=== PATIENT | male | born 1965 | race Hispanic/Latino ===

== ENCOUNTER 2019-05-10 17:00 | Emergency (ER) | payer SELFPAY ==
--- NOTE | 2019-05-10 18:06 | RAD REPORT ---
EXAM DESCRIPTION: CT - Head Brain Wo Cont - 05/10/2019 5:56 pm CLINICAL HISTORY: DIZZINESS Headache, drowsiness, hypertension COMPARISON: No comparisons TECHNIQUE: All CT scans are performed using dose optimization technique as appropriate and may inclu de automated exposure control or mA/KV adjustment according to patient size. FINDINGS: No intracranial hemorrhage, hydrocephalus or extra-axial fluid collection.Mild generalized brain atrophy is present with mild periventricular and deep white matter chronic microvascular ische negra changes.No areas of brain edema or evidence of midline shift. The paranasal sinuses and mastoids are clear. The calvarium is intact. IMPRESSION: No acute intracranial abnormality.
--- NOTE | 2019-05-10 18:14 | RAD REPORT ---
EXAM DESCRIPTION: RAD - Chest Single View - 05/10/2019 6:02 pm CLINICAL HISTORY: CHEST PAIN Chest pain. COMPARISON: No comparisons FINDINGS: Portable technique limits examination quality. Interstitial markings are mildly prominent. The heart is normal in size. No displaced fractures.
[2019-05-10 18:37] LABS: Absolute Lymphocytes (CBC) 1.8 K/uL (0.7-4.9); Basophils % 0.7 % (0-1.3); Hematocrit 42.7 % (39.6-49.0); Lymphocytes % 22.9 % (15.3-44.8); MPV 9.6 fL (7.6-11.3); RBC Red Blood Cell Count 4.23 M/uL (4.33-5.43)
[2019-05-10 18:39] LABS: Protime INR 1.16
[2019-05-10 19:31] LABS: ALT/SGPT 58 U/L (12-78); AST/SGOT 52 U/L (15-37); Albumin 3.5 g/dL (3.4-5.0); Alkaline Phosphatase 177 U/L (45-117); BUN Blood Urea Nitrogen 9 mg/dL (7-18); Bicarbonate 27 mmol/L (21-32); Bilirubin Direct 0.4 mg/dL (0-0.2); Bilirubin Total 1.1 mg/dL (0.2-1.0); Glucose Level 363 mg/dL (74-106); Magnesium 1.8 mg/dL (1.8-2.4); NT PRO-BNP 105 pg/mL (<125); Potassium 3.6 mmol/L (3.5-5.1); Protein, Total 8.8 g/dL (6.4-8.2); Sodium Level 133 mmol/L (136-145); Troponin (Emerg Dept Use Only) < 0.02 ng/mL (0.0-0.045)
--- NOTE | 2019-05-10 20:07 | EDPHYS ---
Physician Documentation [facility] Name: Adelso Monteiro Age: 53 yrs Sex: Male : 1965 Arrival Date: 05/10/2019 Time: 17:01 Bed 23 Private MD: ED Physician Brendan Bruno HPI: 05/10 17:48 This 53 yrs old Male presents to ER via Ambulatory with complaints of High pm1 Blood Pressure. 17:48 The patient has elevated blood pressure and discovered this at home, with a home pm1 device. Onset: The symptoms/episode began/occurred this morning, at 09:00. Modifying factors: The symptoms are aggravated by stress of new job interview. Associated signs and symptoms: Pertinent positives: chest pain, dizziness, headache, for 5 minutes this AM at 0900, Pertinent negatives: dyspnea, nausea, vomiting, weakness. Severity of symptoms: in the emergency department the blood pressure is unchanged. Patient with job interview this AM and after interview he had to go to a physical. Has been unemployed for 5 months and was worried that his blood pressure would prevent him from getting the job. went home prior to going to physical and saw that his pressure was elevated and was experiencing chest pain. Historical: - Allergies: 17:12 No Known Allergies; hb - Home Meds: 17:12 lisinopril 10 mg Oral tab 1 tab once daily [Active]; hb 17:13 metformin 500 mg Oral Tb24 1 tab once daily [Active]; hb - PMHx: 17:12 Hypertension; hb 17:13 Diabetes - NIDDM; hb - PSHx: 17:12 None; hb - Immunization history:: Adult Immunizations up to date. - Coronavirus screen:: The patient has NOT traveled to [place] in the past 14 days. The patient has NOT had contact with known/suspected case of Coronavirus? Proceed with normal triage procedures. - Social history:: Smoking status: Patient denies any tobacco usage or history of. - Ebola Screening: : No symptoms or risks identified at this time. ROS: 17:48 Constitutional: Negative for fever, chills, and weight loss, Eyes: Negative for injury, pm1 pain, redness, and discharge, ENT: Negative for injury, pain, and discharge, Neck: Negative for injury, pain, and swelling. 17:48 Respiratory: Negative for shortness of breath, cough, wheezing, and pleuritic chest pain, Abdomen/GI: Negative for abdominal pain, nausea, vomiting, diarrhea, and constipation, Back: Negative for injury and pain, MS/Extremity: Negative for injury and deformity, Skin: Negative for injury, rash, and discoloration. 17:48 Cardiovascular: Positive for chest pain, Negative for edema, palpitations. 17:48 Neuro: Positive for dizziness, headache, Negative for numbness, tingling, weakness. Exam: 17:48 Constitutional: This is a well developed, well nourished patient who is awake, alert, pm1 and in no acute distress. Head/Face: Normocephalic, atraumatic. Neck: Trachea midline, no thyromegaly or masses palpated, and no cervical lymphadenopathy. Supple, full range of motion without nuchal rigidity, or vertebral point tenderness. No Meningismus. Chest/axilla: Normal chest wall appearance and motion. Nontender with no deformity. No lesions are appreciated. Cardiovascular: Regular rate and rhythm with a normal S1 and S2. No gallops, murmurs, or rubs. Normal PMI, no JVD. No pulse deficits. Respiratory: Lungs have equal breath sounds bilaterally, clear to auscultation and percussion. No rales, rhonchi or wheezes noted. No increased work of breathing, no retractions or nasal flaring. Abdomen/GI: Soft, non-tender, with normal bowel sounds. No distension or tympany. No guarding or rebound. No evidence of tenderness throughout. Back: No spinal tenderness. No costovertebral tenderness. Full range of motion. Skin: Warm, dry with normal turgor. Normal color with no rashes, no lesions, and no evidence of cellulitis. MS/ Extremity: Pulses equal, no cyanosis. Neurovascular intact. Full, normal range of motion. 17:48 Neuro: Orientation: is normal, Motor: is normal, moves all fours, Sensation: is normal, no obvious gross deficits, Gait: is steady, at a normal pace, without difficulty. Vital Signs: 17:13 BP 174 / 90; Pulse 99; Resp 16; Temp 97.6; Pulse Ox 98% on R/A; Weight 73.94 kg; Height hb 5 ft. 5 in. (165.10 cm); Pain 8/10; 19:00 BP 161 / 90; Pulse 92; Resp 15; Pulse Ox 98% on R/A; vc 20:00 BP 150 / 97; Pulse 92; Resp 17; Pulse Ox 98% on R/A; vc 17:13 Body Mass Index 27.12 (73.94 kg, 165.10 cm) hb MDM: 17:23 Patient medically screened. carl 20:05 Data reviewed: vital signs. Data interpreted: Pulse oximetry: on room air is 98 %. pm1 Interpretation: normal. Counseling: I had a detailed discussion with the patient and/or guardian regarding: the historical points, exam findings, and any diagnostic results supporting the discharge/admit diagnosis, lab results, radiology results, the need for outpatient follow up, to return to the emergency department if symptoms worsen or persist or if there are any questions or concerns that arise at home. 05/10 17:39 Order name: Basic Metabolic Panel pm1 05/10 17:39 Order name: CBC with Diff pm1 05/10 17:39 Order name: LFT's pm1 05/10 17:39 Order name: Magnesium pm1 05/10 17:39 Order name: NT PRO-BNP pm1 05/10 17:39 Order name: PT-INR pm1 05/10 17:39 Order name: Troponin (emerg Dept Use Only) pm1 05/10 18:47 Order name: CBC with Automated Diff; Complete Time: 18:51 EDMS 05/10 18:47 Order name: Protime (+INR); Complete Time: 18:51 EDMS 05/10 19:34 Order name: Basic Metabolic Panel; Complete Time: 19:58 EDMS 05/10 19:34 Order name: Liver (Hepatic) Function; Complete Time: 19:58 EDMS 05/10 19:34 Order name: Troponin (Emerg Dept Use Only); Complete Time: 19:58 EDMS 05/10 19:34 Order name: NT PRO-BNP; Complete Time: 19:58 EDMS 05/10 19:34 Order name: Magnesium; Complete Time: 19:58 EDMS 05/10 17:39 Order name: XRAY Chest (1 view) pm1 05/10 17:39 Order name: Cardiac monitoring; Complete Time: 19:05 pm1 05/10 17:39 Order name: EKG - Nurse/Tech; Complete Time: 19:05 pm1 05/10 17:39 Order name: IV Saline Lock; Complete Time: 19:05 pm1 05/10 17:39 Order name: Labs collected and sent; Complete Time: 19:05 pm1 05/10 17:39 Order name: O2 Per Protocol; Complete Time: 19:05 pm1 05/10 17:39 Order name: O2 Sat Monitoring; Complete Time: 19:05 pm1 05/10 17:39 Order name: CT Head Brain wo Cont pm1 05/10 18:42 Order name: Labs - recollect needed: GREEN TOP; Complete Time: 19:05 ss 05/10 19:18 Order name: Head Brain Wo Cont; Complete Time: 20:18 EDMS 05/10 20:13 Order name: RAD; Complete Time: 20:18 EDMS Administered Medications: No medications were administered Disposition: 05/11 11:09 Co-signature as Attending Physician, Vic Ponce BENZENE WASHER OPERATOR I agree with the assessment and tw4 plan of care. Disposition: 05/10/19 20:05 Discharged to Home. Impression: Essential (primary) hypertension, Chest pain, unspecified. - Condition is Stable. - Discharge Instructions: Nonspecific Chest Pain, Hypertension, How to Take Your Blood Pressure, [id number], DASH Eating Plan, Managing Your Hypertension. - Medication Reconciliation Form, Thank You Letter, Antibiotic Education, Prescription Opioid Use, Work release form form. - Follow up: Emergency Department; When: As needed; Reason: Worsening of condition. Follow up: Private Physician; When: 2 - 3 days; Reason: Recheck today's complaints, Continuance of care, Re-evaluation by your physician. - Problem is new. - Symptoms have improved. Signatures: Dispatcher [employer] EDMS Brendan Bruno MD MD cha Smirch, Shelby, RN RN ss Vic Ponce, HARISH BENZENE WASHER OPERATOR pm1 Shawnee Carranza RN RN Torres Berrios MD MD tw4 Isatu Burrell RN RN ca1 Corrections: (The following items were deleted from the chart) 05/10 20:34 20:05 05/10/2019 20:05 Discharged to Home. Impression: Essential (primary) ca1 hypertensionChest pain, unspecified. Condition is Stable. Forms are Medication Reconciliation Form, Thank You Letter, Antibiotic Education, Prescription Opioid Use. Follow up: Emergency Department; When: As needed; Reason: Worsening of condition. Follow up: Private Physician; When: 2 - 3 days; Reason: Recheck today's complaints, Continuance of care, Re-evaluation by your physician. Problem is new. Symptoms have improved. pm1
--- NOTE | 2019-05-10 20:07 | ER ---
Nurse's Notes [facility] Name: Adelso Monteiro Age: 53 yrs Sex: Male : 1965 Arrival Date: 05/10/2019 Time: 17:01 Bed 23 Private MD: Diagnosis: Chest pain, unspecified;Essential (primary) hypertension Presentation: 05/10 17:11 Presenting complaint: Elevated home BP readings since this morning, 174/100, 168/95, hb 182/96. Also c/o headache and dizziness. Took Lisinopril 0630. Transition of care: patient was not received from another setting of care. Onset of symptoms was May 10, 2019. Risk Assessment: Do you want to hurt yourself or someone else? Patient reports no desire to harm self or others. Care prior to arrival: None. 17:11 Method Of Arrival: Ambulatory hb 17:11 Acuity: PADMAJA 3 hb 18:03 Initial Sepsis Screen: Does the patient meet any 2 criteria? No. Patient's initial vc sepsis screen is negative. Does the patient have a suspected source of infection? No. Patient's initial sepsis screen is negative. Historical: - Allergies: 17:12 No Known Allergies; hb - Home Meds: 17:12 lisinopril 10 mg Oral tab 1 tab once daily [Active]; hb 17:13 metformin 500 mg Oral Tb24 1 tab once daily [Active]; hb - PMHx: 17:12 Hypertension; hb 17:13 Diabetes - NIDDM; hb - PSHx: 17:12 None; hb - Immunization history:: Adult Immunizations up to date. - Coronavirus screen:: The patient has NOT traveled to [place] in the past 14 days. The patient has NOT had contact with known/suspected case of Coronavirus? Proceed with normal triage procedures. - Social history:: Smoking status: Patient denies any tobacco usage or history of. - Ebola Screening: : No symptoms or risks identified at this time. Screenin:01 Abuse screen: Denies threats or abuse. Nutritional screening: No deficits noted. vc Tuberculosis screening: No symptoms or risk factors identified. Fall Risk None identified. Assessment: 17:58 General: Appears in no apparent distress. comfortable, Behavior is calm, cooperative, vc appropriate for age. Pain: Complains of pain in headache. 17:59 Neuro: Level of Consciousness is awake, alert, obeys commands, Oriented to person, vc place, time, situation, Appropriate for age. Cardiovascular: Patient's skin is warm and dry. Respiratory: Reports Airway is patent Respiratory effort is even, unlabored, Respiratory pattern is regular, symmetrical. GI: No signs and/or symptoms were reported involving the gastrointestinal system. : No signs and/or symptoms were reported regarding the genitourinary system. EENT: No deficits noted. Derm: Skin is intact, is healthy with good turgor, Skin temperature is warm. Musculoskeletal: Circulation, motion, and sensation intact. Range of motion: intact in all extremities. 18:54 Reassessment: Patient and/or family updated on plan of care and expected duration. Pain vc level reassessed. Patient is alert, oriented x 3, equal unlabored respirations, skin warm/dry/pink. 20:19 Reassessment: Patient and/or family updated on plan of care and expected duration. Pain vc level reassessed. Patient is alert, oriented x 3, equal unlabored respirations, skin warm/dry/pink. Patient denies pain at this time. Patient states feeling better. Patient states symptoms have improved. Vital Signs: 17:13 BP 174 / 90; Pulse 99; Resp 16; Temp 97.6; Pulse Ox 98% on R/A; Weight 73.94 kg; Height hb 5 ft. 5 in. (165.10 cm); Pain 8/10; 19:00 BP 161 / 90; Pulse 92; Resp 15; Pulse Ox 98% on R/A; vc 20:00 BP 150 / 97; Pulse 92; Resp 17; Pulse Ox 98% on R/A; vc 17:13 Body Mass Index 27.12 (73.94 kg, 165.10 cm) ED Course: 17:01 Patient arrived in ED. ag5 17:12 Triage completed. hb 17:13 Arm band placed on. hb 17:17 Vic Ponce NP is PHCP. pm1 17:17 Torres Berrios MD is Attending Physician. pm1 17:23 Attending Physician role handed off by Torres Berrios MD [facility] 17:23 Brendan Bruno MD is Attending Physician. carl 17:27 Imelda Hackett, TI is Primary Nurse. vc 18:04 Patient has correct armband on for positive identification. Placed in gown. Bed in low vc position. Call light in reach. court recording monitor on. Pulse ox on. NIBP on. 18:18 CT Head Brain wo Cont Sent. lt1 18:37 Inserted saline lock: 22 gauge in left antecubital area, using aseptic technique. lt1 20:32 No provider procedures requiring assistance completed. IV discontinued, intact, ca1 bleeding controlled, No redness/swelling at site. Pressure dressing applied. Administered Medications: No medications were administered Outcome: 20:05 Discharge ordered by . pm1 20:32 Discharged to home ambulatory. ca1 20:32 Condition: stable 20:32 Discharge instructions given to patient, Instructed on discharge instructions, follow up and referral plans. Demonstrated understanding of instructions, follow-up care. 20:34 Patient left the ED. ca1 Signatures: Brendan Bruno MD MD cha Marinas, Patrick, ENTRY REP ENTRY REP pm1 Shawnee Carranza RN RN hb AcIsatu jorgensen RN RN ca1 Margie, Walker ag5 Jennifer, Vandana lt1 Imelda Hackett RN RN vc Corrections: (The following items were deleted from the chart) 17:13 17:11 Presenting complaint: Elevated home BP readings since this morning, 174/100, hb 168/95, 182/96. Also c/o headache and dizziness. hb
== END 2019-05-10 20:34 | disposition home or self-care (01) ==
LOC: ER 17:00
DX: I10 Essential (primary) hypertension (principal); R07.9 Chest pain, unspecified; E11.9 Type 2 diabetes mellitus without complications
CPT/HCPCS: 36415; 70450; 71045; 80048; 80076; 83735; 83880; 84484; 85025; 85610; 99284